=== PATIENT | female | born 1930 | race Two or more races ===

== ENCOUNTER 2017-07-05 13:07 | Outpatient (CLI) | payer MEDICARE, MEDICAID ==
--- NOTE | 2017-07-05 14:14 | Diagnostic Imaging Report ---
Indication: Cough Technique: XRAY Chest 2v Comparison: None Findings: Heart size and mediastinal contours are within normal limits. Atherosclerotic calcifications are seen in the aortic arch. There is no focal airspace consolidation, pleural effusion or pneumothorax. There is biapical pleural capping. There are multilevel degenerative changes of the thoracic spine. No acute osseous abnormality is identified. Impression: No radiographic evidence of acute cardiopulmonary disease.
== END 2017-07-05 15:07 | disposition home or self-care (01) ==
LOC: RAD 13:07
DX: R05 Cough (principal)
CPT/HCPCS: 71020